=== PATIENT | female | born 1950 | race Caucasian/White ===

== ENCOUNTER 2017-06-02 11:09 | Observation (INO) | payer BC ==
[~2017-06-02] VITALS: Ht 160 cm; Wt 102.8 kg
[~2017-06-02 11:09] MED LIST: CRESTOR10 MG PO; CYMBALTA60 MG PO; FORTAMET500 M1 PO; HYDROCHLOROTHIA25 MG PO; LASIX20 MG PO; LEVOFLOXACIN500 MG PO; LISINOPRIL5 MG PO; LYRICA150 MG PO; NORTRIPTYLINE H10 MG PO; PROAIR HFA8.5 GM IH; PROTONIX40 MG PO; ROPINIROLE HCL2 MG PO; VESICARE5 MG PO
[2017-06-02 11:51] LABS: HEMATOCRIT 37.6 % (36.0-46.0); HEMOGLOBIN 12.3 G/DL (11.9-15.5); MCH 28.3 PG (29.0-34.0); MCHC 32.7 G/DL (30.0-36.0); MCV 86.4 FL (83-99); PLATELET COUNT 262 K/uL (156-360); RBC DIS.WIDTH-CV 13.8 % (11.8-14.6); RBC DIS.WIDTH-SD 43.8 % (39-53); RED BLOOD COUNT 4.35 M/uL (3.80-5.20); WHITE BLOOD COUNT 5.6 K/uL (4.1-10.2)
[2017-06-02 12:05] LABS: CHLORIDE 102 mEq/L (99-109); POTASSIUM 4.2 mEq/L (3.7-5.4); SODIUM 140 mEq/L (136-147)
[2017-06-02 12:07] LABS: GLUCOSE 108 mg/dL (70-99)
[2017-06-02 12:11] LABS: GFR ESTIMATE (CALCULATED) > 59 mL/min/; TROP-I INTERPRETATION NEGATIVE; TROPONIN-I < 0.01 ng/mL (0.0-0.30); UREA NITROGEN (BUN) 18 mg/dL (9-23)
[2017-06-02] MEDS ORDERED: ACTOPLUS MET1 TABLE1 PO (13:55)
[2017-06-02] MEDS ORDERED: MACROBID100 MG PO (13:56)
[2017-06-02] MEDS ORDERED: PREDNISOLONE AC15 ML BOTH EYES (13:56)
[2017-06-02] MEDS ORDERED: FLOMAX0.4 MG PO (13:56)
[2017-06-02] MEDS ORDERED: VIIBRYD40 MG PO (13:57)
[2017-06-02] MEDS ORDERED: SINEMET CR 50-1 EACH PO (13:57)
[2017-06-02] MEDS ORDERED: CARVEDILOL3.125 MG PO (13:57)
[2017-06-02 16:06] VITALS: BP 135/85
[2017-06-02 18:37] LABS: TROP-I INTERPRETATION NEGATIVE; TROPONIN-I < 0.01 ng/mL (0.0-0.30)
[2017-06-02 19:07] VITALS: BP 136/63
[2017-06-03 00:09] VITALS: BP 109/51
[2017-06-03 01:02] LABS: TROP-I INTERPRETATION NEGATIVE; TROPONIN-I < 0.01 ng/mL (0.0-0.30)
[2017-06-03 04:12] VITALS: BP 168/72
[2017-06-03 04:30] VITALS: BP 158/80
[2017-06-03 05:44] LABS: ALBUMIN 3.6 G/DL (3.2-4.8); ALKALINE PHOSPHATASE 70 IU/L (3-129); AST (GOT) 12 IU/L (2-34); CHLORIDE 101 MEQ/L (99-109); CREATININE 0.9 MG/DL (0.6-1.3); GFR ESTIMATE (CALCULATED) > 59 mL/min/; GLUCOSE 90 mg/dL (70-99); HDL CHOLESTEROL 37 MG/DL (Desirable>=50); LDL CHOLESTEROL 76 mg/dL (Desirable<100); NON-HDL CHOLESTEROL 114 mg/dL (Desirable<160); POTASSIUM 4.1 MEQ/L (3.7-5.4); SODIUM 140 MEQ/L (136-147); TOTAL BILIRUBIN 0.3 MG/DL (0.0-1.0); TOTAL CHOLESTEROL 151 mg/dL (Desirable<200); TOTAL PROTEIN 6.6 G/DL (6.4-8.3); TRIGLYCERIDES 192 MG/DL (Normal: <150); UREA NITROGEN (BUN) 16 mg/dL (9-23)
[2017-06-03 05:58] LABS: ALT (GPT) < 3 IU/L (3-49)
[2017-06-03 07:40] VITALS: BP 144/66
== END 2017-06-03 13:30 | disposition home or self-care (01) ==
LOC: EME 11:09 → ENRESERV 13:37 → EDOF 13:37 → ENRESERV 14:16 → 5WEST 16:01
PROVIDERS: Internal Medicine
DX: R07.9 Chest pain, unspecified (principal); I10 Essential (primary) hypertension; I89.0 Lymphedema, not elsewhere classified; I38 Endocarditis, valve unspecified; R01.1 Cardiac murmur, unspecified; E11.40 Type 2 diabetes mellitus with diabetic neuropathy, unspecified; E78.5 Hyperlipidemia, unspecified; G25.81 Restless legs syndrome; K21.9 Gastro-esophageal reflux disease without esophagitis; M79.7 Fibromyalgia; Z90.49 Acquired absence of other specified parts of digestive tract; Z82.49 Family history of ischemic heart disease and other diseases of the circulatory system; Z88.0 Allergy status to penicillin; Z88.1 Allergy status to other antibiotic agents; Z88.2 Allergy status to sulfonamides; Z88.5 Allergy status to narcotic agent
CPT/HCPCS: 71046; 80048; 80053; 80061; 82948; 84484; 85027; 93005; 99281; 99285; G0378; J1650